=== PATIENT | female | born 1985 | race Caucasian/White ===

== ENCOUNTER 2020-06-23 14:11 | Emergency (ER) | payer OTHER ==
[~2020-06-23] VITALS: Ht 154.9 cm; Wt 97.5 kg
[2020-06-23 14:14] VITALS: Ht 154.9 cm; Wt 97.5 kg
[2020-06-23 15:34] VITALS: BP 135/87
== END 2020-06-23 15:34 | disposition home or self-care (01) ==
LOC: ED 14:11
DX: M54.5 Low back pain (principal); R11.0 Nausea; R10.9 Unspecified abdominal pain; E66.9 Obesity, unspecified